=== PATIENT | male | born 1995 | race Caucasian/White ===

== ENCOUNTER 2021-04-26 14:26 | Outpatient (CLI) | payer BC, SELFPAY ==
--- NOTE | 2021-04-26 | ECHO_ITS ---
Patient Info Name: Saran Davis Age: 25 years : 1995 Gender: Male Ht: 72 in Wt: 215 lbs BSA: 2.25 m2 HR: 78 bpm BP: 142 / 91 mmHg Heart Rhythm: Sinus Rhythm Technical Quality: Good Exam Date: 04/26/2021 3:01 PM Exam Location: [facility] Patient Status: Outpatient Admit Date: 04/26/2021 Staff Ordering Physician: MckinleyRosaura PA-C Heavy Truck Mechanic: Hattie Sanders RDCS Attending Provider: Rosaura Knutson PA-C Exam Type: CA echo doppler color flow Study Info Indications - BILATERAL AKSHAT Complete two-dimensional, color flow and Doppler transthoracic echocardiogram is performed. Summary 1. Complete two-dimensional, color flow and Doppler transthoracic echocardiogram is performed. 2. Unremarkable echocardiogram. Left Ventricle Left ventricular chamber dimension is normal. Left ventricular systolic function is normal, estimated at 65-70%. The left ventricular diastolic function is normal. Right Ventricle Right ventricular chamber dimension is normal. Left Atria Left atrial chamber dimension is normal. Right Atria Right atrial chamber dimension is normal. Aortic Valve The aortic valve is normal. Pulmonic Valve The pulmonic valve is normal. Mitral Valve The mitral valve has normal leaflets. Tricuspid Valve The tricuspid valve leaflets are normal. Pericardium/Pleural The pericardium appears normal. Aorta The aortic root size at the sinus of Valsalva is normal. Left Ventricular Outflow Tract Name Value Normal LVOT 2D LVOT Diameter 2.1 cm LVOT Doppler LVOT Peak Gradient 5 mmHg LVOT Mean Gradient 2 mmHg LVOT VTI 22 cm LVOT VTI/AV VTI Ratio 1.0 LVOT Stroke Volume 78 ml LVOT CO 15.8 l/min LVOT CI 7.0 l/min/m2 Pulmonic Valve Name Value Normal PV Doppler PV Peak Gradient 3 mmHg PV Regurgitation Doppler [place] Peak End Diastolic Velocity 112 cm/s Mitral Valve Name Value Normal MV Doppler MV Decel [place] 510 cm/s2 MV PHT 55 ms MV Area (PHT) 4.0 cm2 4.0-5.0 MV Diastolic Function MV E Peak Velocity 97 cm/s MV A Peak Velocity
== END 2021-04-26 14:27 | disposition home or self-care (01) ==
LOC: ANHCARD 14:32
PROVIDERS: PCP Physician Assistant; Visit Provider Physician Assistant
DX: R60.0 Localized edema (principal)
CPT/HCPCS: 93306

== ENCOUNTER 2022-02-03 13:37 | Emergency (ER) | payer SELFPAY ==
--- NOTE | ~2022-02-03 | CT_ITS ---
EXAMINATION: CT brain wo con DATE: 02/03/2022 14:49 INDICATION: Altered mental status TECHNIQUE: Computed tomography (CT) of the head was performed without intravenous contrast. Sagittal and coronal reconstructions were performed. The mA was adjusted according to patient size. Iterative reconstruction technique was employed. The dose-length product was 605.33 mGy-cm. COMPARISON: head CT dated 06/08/2014 FINDINGS: No acute intracranial hemorrhage, acute infarction or abnormal extra axial fluid collection. Ventricl es are normal and symmetric. No mass/mass effect. The orbits, paranasal sinuses and mastoid air cells are normal. IMPRESSION: 1. Normal brain. No acute intracranial process. Reviewed, dictated and finalized at location A.
--- NOTE | ~2022-02-03 | XR_ITS ---
EXAMINATION: XR chest 2V DATE: 02/03/2022 14:22 INDICATION: Weakness. TECHNIQUE: Frontal and lateral views of the chest were obtained. COMPARISON: Chest 2 views 06/23/2017, right shoulder radiographs 11/12/2014 FINDINGS: The chest demonstrates clear lungs without pneumonia, pleural effusion, or pneumothorax. Th e heart size is normal. There is an electronic implant in left anterior chest wall. Partially visuali zed is a chronic nonaggressive lytic lesion in proximal right humerus, likely benign. IMPRESSION: 1. No acute cardiopulmonary disease. Reviewed, dictated and finalized at location A.
[2022-02-03 13:43] VITALS: BP 170/93; PULSE 94; RESP 18; TEMP 36.8; O2SAT 100
[2022-02-03 13:51] VITALS: BP 155/99; PULSE 93; PULSE 98; RESP 32; O2SAT 99
--- NOTE | 2022-02-03 13:54 | ECG_ITS ---
Measurements Intervals [place] Rate: 89 P: 68 UT: 130 QRS: -24 QRSD: 90 T: 34 QT: 354 QTc: 431 Interpretive Statements SINUS RHYTHM POSSIBLE LEFT ATRIAL ENLARGEMENT INCOMPLETE RIGHT BUNDLE BRANCH BLOCK BORDERLINE T WAVE ABNORMALITY- ANTERIOR LEADS BORDERLINE ECG NO PREVIOUS ECG AVAILABLE FOR COMPARISON Electronically Signed On 02-03-2022 14:12:35 CDT by Ramon Berry D.O.
--- NOTE | 2022-02-03 14:13 | ED.WEAKNESS ---
HPI - Weakness General Chief complaint: Weakness Stated complaint: fentanyl detox, lethargic, nausea and vomiting Time Seen by Provider: 02/03/22 14:13 Source: patient and family Mode of arrival: ambulatory Limitations: no limitations History of Present Illness HPI Narrative: Patient is a 26-year-old male with a history of opiate abuse, NV, hypertension presenting to the emergency department for evaluation of opiate withdrawal. Patient states that he has been clean for days from opiate use, and states that he has been having diffuse weakness, lethargy, diarrhea. He denies any chest or abdominal pain. He denies fever, cough, shortness of breath. Mom present at bedside states that he is supposed to be going to rehabilitation facility in [place] but because he was intermittently confused for her, he she wanted him to be evaluated. Currently the patient is awake, alert and oriented to person, place, and to time. The patient's mom states that she feels that his responses to questions are delayed although he is appropriate when he does give a response. Patient denies history of other drug abuse. He denies IV drug use, states that he typically would inhale/snort opiates. He denies cocaine use or methamphetamine use. Related Data Allergies Allergy/AdvReac Type Severity Reaction Status Date / Time amoxicillin Allergy Mild Verified 08/26/17 13:52 clavulanic acid Allergy Mild Verified 08/26/17 13:52 POTASSIUM CLAVULANATE Allergy Mild Uncoded 08/26/17 13:52 Review of Systems Review of Systems: CONSTITUTIONAL: Denies fever, chills, or sweats. EYES: Denies visual changes ENT: Denies rhinorrhea, congestion, sore throat, or otalgia. CARDIOVASCULAR: Denies chest pain, palpitations, or edema. RESPIRATORY: Denies cough or dyspnea. GASTROINTESTINAL: Denies abdominal pain, reports nausea without vomiting, reports diarrhea GENITOURINARY: Denies dysuria or hematuria. SKIN: Denies rash or itching. MUSCULOSKELETAL: Denies back pain, joint pain, or myalgia. NEUROLOGIC: Denies headache, numbness, reports feeling diffusely weak PMFSH Past Medical History Medical History (Updated 02/03/22 @ 16:09 by Alda Gayle MD) Hemochromatosis Social History Social History (Updated 02/03/22 @ 14:41 by Alda Gayle MD) Smoking status: Current some day smoker Alcohol intake: never Substance use: former Substance use type: opiates Living arrangements: with family Gender identity (if verbalized by the patient): Male Exam Narrative: GENERAL: Awake, alert, conversant, anxious appearing HEAD: Normocephalic, atraumatic. EYES: PERRLA and EOMI. ENT: Nares clear, no rhinorrhea or epistaxis. Mucous membranes moist. NECK: Supple. CHEST: No respiratory distress, mild tachypnea, breathing even and non labored, lungs are clear to auscultation bilaterally HEART: Tachycardic rate, sinus rhythm ABDOMEN:Non distended, non tender in all 4 quadrants, no rebound, rigidity or guarding EXTREMITIES: Normal range of motion. No edema. SKIN: Warm, dry, no rash. NEURO:No focal deficits. Alert and oriented x3 Course Vital Signs Vital signs: Vital Signs Temperature 36.8 C 02/03/22 13:43 Pulse Rate 94 02/03/22 13:43 Respiratory Rate 18 02/03/22 13:43 Blood Pressure 170/93 H 02/03/22 13:43 Pulse Oximetry 100 02/03/22 13:43 Oxygen Delivery Room Air 02/03/22 13:43 Temperature 36.8 C 02/03/22 13:43 Pulse Rate 98 02/03/22 13:51 Respiratory Rate 32 H 02/03/22 13:51 Blood Pressure 155/99 H 02/03/22 13:51 Pulse Oximetry 99 02/03/22 13:51 Oxygen Delivery Room Air 02/03/22 13:51 MDM - Weakness MDM Narrative Medical decision making narrative: Patient presenting for evaluation of nausea, anxiety, diarrhea in the setting of opiate withdrawal. Patient is on day 4 without any opiate on board. At the time of assessment, patient is not reporting any pain. Abdomen is soft, chest wall is nontender. No acute findings o
[2022-02-03 14:15] LABS: Basophils Percent Auto 0.2 % (0.2-1.2); Eosinophils Percent Auto 0.3 % (0-4.4); Hematocrit 45.3 % (42.0-52.0); Hemoglobin 15.1 g/dL (14.0-18.0); Immature Granulocyte Absolute 0.04 K/mm3 (0.00-0.031); Immature Granulocyte Percent A 0.3 % (0-0.5); Lymphocytes Absolute Auto 1.98 K/mm3 (0.9-3.2); Lymphocytes Percent Auto 16.3 % (18.3-44.2); Mean Corpuscular HGB Conc 33.3 g/dl (32-36); Mean Corpuscular Hemoglobin 29.4 pg (26-34); Mean Corpuscular Volume 88.1 fl (80-100); Mean Platelet Volume 9.1 fl (7.4-10.4); Monocytes Absolute Auto 0.9 K/mm3 (0.1-0.6); Monocytes Percent Auto 7.4 % (2.6-8.5); Neutrophils Absolute Auto 9.2 K/mm3 (1.3-6.7); Neutrophils Percent Auto 75.5 % (45.5-73.1); Platelet Count Result 318 k/mm3 (150-375); Red Blood Count 5.14 M/mm3 (4.6-6.20); Red Cell Distribution Width 13.2 % (11.5-14.5); White Blood Count 12.2 K/mm3 (4.5-10.0)
[2022-02-03 14:22] LABS: Alanine Aminotransferase 25 U/L (6-50); Albumin Level 4.7 g/dL (3.5-5.1); Alkaline Phosphatase 59 U/L (38-126); Anion Gap 10 mmol/L (8-16); Aspartate Amino Transferase 22 U/L (17-59); Bilirubin,Total 0.8 mg/dL (0.2-1.3); Blood Urea Nitrogen 20 mg/dL (9-20); Calcium 9.3 mg/dL (8.4-10.2); Carbon Dioxide 21 mmol/L (22-30); Chloride 105 mmol/L (98-107); Estimated Glomerular Filt Rate > 60; Glucose 124 mg/dL (65-110); Potassium 3.7 mmol/L (3.4-5.0); Sodium 136 mmol/L (137-145)
[2022-02-03] MEDS: ONDANSETRON INJ 4 MG/2 ML VIAL IV PUSH (14:50)
[2022-02-03] MEDS: SODIUM CHLORIDE 0.9% IV 1,000 ML 999 ML IV CONT (14:50)
[2022-02-03] MEDS: LORazepam INJ (*CRX) 2 MG/ML VIAL 1 MG IV PUSH (14:50)
[2022-02-03 14:57] LABS: Fractional Inspired Oxygen 21 %; HCO3 VBG 21.2 mEq/l (24.0-30.0); PCO2 VBG 32.8 mmHg (42.0-48.0)
[2022-02-03 15:00] LABS: pH VBG 7.428 (7.300-7.400)
[2022-02-03] MEDS: LACTATED RINGERS 1,000 ML 999 ML IV CONT (15:50)
[2022-02-03 15:58] LABS: Appearance Urine Clear (Clear); Bilirubin Urine Negative (Negative); Blood Urine Negative (Negative); Color Urine Yellow (Yellow); Glucose Urine UA Negative (Negative); Ketones Urine Negative (Negative); Leukocyte Esterase Ur Negative LEU/UL (Negative); Nitrate Urine Negative (Negative); Protein Urine Negative (Negative); Specific Grav Ur 1.025 (1.001-1.035); Urobilinogen Urine 0.2 mg/dL (<2.0)
[2022-02-03 16:01] LABS: Troponin I < 0.012 ng/mL (0.000-0.034)
[2022-02-03 16:08] LABS: Add Urine Microscopic? NO
[2022-02-03 16:13] LABS: Amphetamine Screen Urine Negative (Negative); Barbiturate Screen Urine Negative (Negative); Benzodiazepines Screen Urine Negative (Negative); Cannabinoid Screen Urine Positive (Negative); Cocaine Screen Urine Negative (Negative); Methadone Screen Urine Negative (Negative); Opiate Screen Urine Negative (Negative); Phencyclidine Screen Urine Negative (Negative)
[2022-02-03 16:49] VITALS: BP 155/89; PULSE 77; RESP 16; O2SAT 98
== END 2022-02-03 16:51 | disposition home or self-care (01) ==
PROVIDERS: Emergency Provider Emergency Medicine; PCP Physician Assistant
DX: F11.23 Opioid dependence with withdrawal (principal); F17.200 Nicotine dependence, unspecified, uncomplicated; I45.10 Unspecified right bundle-branch block; R94.31 Abnormal electrocardiogram [ECG] [EKG]
CPT/HCPCS: 36415; 70450; 71046; 80053; 80307; 81003; 82803; 84484; 85025; 93005; 96361; 96374; 96375; 99284; J2060; J2405; J7030; J7120